=== PATIENT | female | born 1995 ===

== ENCOUNTER 2017-10-03 10:48 | Emergency (ER) | payer OTHER ==
[2017-10-03] MEDS ORDERED: Acetaminophen TAB* 325 MG PO ONE (11:39)
[2017-10-03 12:15] LABS: Hematocrit 40 % (35-47); Hemoglobin 13.1 g/dl (12.0-16.0); Mean Corpuscular HGB Conc 33 g/dl (31-36); Mean Corpuscular Hemoglobin 31 pg (27-31); Mean Corpuscular Volume 93 fL (80-97); Mean Platelet Volume 8 um3 (7.4-10.4); Red Blood Count 4.29 10^6/ul (4.0-5.4); Red Cell Distribution Width 13 % (10.5-15); White Blood Count 14.6 10^3/ul (3.5-10.8)
[2017-10-03 12:37] LABS: Albumin 4.4 g/dL (3.2-5.2); BUN/Creatinine Ratio 13.3 (8-20); C Reactive Protein 2.87 mg/L (< 5.00); Calcium 9.7 mg/dL (8.6-10.3); EGFR African American 110.6 (>60); Globulin 2.8 g/dL (2-4); Magnesium 1.9 mg/dL (1.9-2.7); Potassium 3.9 mmol/L (3.5-5.0); Total Bilirubin 0.7 mg/dL (0.2-1.0); Total Protein 7.2 g/dL (6.4-8.9)
[2017-10-03 12:51] LABS: TSH (Thyroid Stimulating Horm) 1.14 mcIU/mL (0.34-5.60)
[2017-10-03 13:47] LABS: Urine Bacteria Absent (Absent); Urine Bilirubin Negative (Negative); Urine Glucose Negative (Negative); Urine Nitrite Negative (Negative)
--- NOTE | 2017-10-03 14:05 | ED ---
Jesse Reed Nilda, scribed for Hung Lam MD on 10/03/17 at 1145 . Complex/Multi-Sys Presentation - HPI Summary HPI Summary: This patient is a 22 year old F presenting to [facility] with a chief complaint of general malaise since yesterday. The patient rates the pain 6/10 in severity. Symptoms aggravated and alleviated by nothing. Patient reports chills, body aches, mild left flank pain, fatigue, and headache. Patient denies cough, N/V/D , rhinorrhea, burning with urination, and sore throat. She states she is also worried she may have contracted Hep C from ex-boyfriend.Current medications include flagyl (treating Trichomonas) and anti-fungal medication (treating yeast infection). Pt states that this past month she had a pelvic exam at [facility] with unremarkable results except for trichomonas. NKDA. - History Of Current Complaint Chief Complaint: EDFluSymptoms Time Seen by Provider: 10/03/17 11:19 Hx Obtained From: Patient Onset/Duration: Sudden Onset, Lasting Days, Still Present Timing: Constant Severity Currently: Moderate Location: Pain At: - left flank, general body aches Aggravating Factor(s): nothing Alleviating Factor(s): nothing Associated Signs And Symptoms: Positive: Other - chills, body aches, mild left flank pain, fatigue, and headache. Patient denies cough, N/V/D, rhinorrhea, burning with urination, and sore throat. - Allergies/Home Medications Allergies/Adverse Reactions: Allergies Allergy/AdvReac Type Severity Reaction Status Date / Time No Known Allergies Allergy Verified 10/03/17 10:57 PMH/Surg Hx/FS Hx/Imm Hx History: Reports: Other Problems/Disorders - trichomonas, yeast infection Sensory History: Denies: Hx Legally Blind EENT History: Denies: Hx Deafness Infectious Disease History: No Infectious Disease History: Denies: Traveled Outside the [place] in Last 30 Days - Family History Known Family History: Negative: Cardiac Disease, Hypertension, Diabetes - Social History Occupation: Student Alcohol Use: None Hx Substance Use: No Substance Use Type: Reports: None Hx Tobacco Use: No Smoking Status (MU): Never Smoked Tobacco Review of Systems Positive: Chills, Fatigue Negative: Sore Throat, Nasal Discharge Negative: Cough Negative: Vomiting, Diarrhea, Nausea Positive: flank pain - left. Negative: burning Positive: Other - body aches Positive: Headache All Other Systems Reviewed And Are Negative: Yes Physical Exam Triage Information Reviewed: Yes Vital Signs On Initial Exam: Initial Vitals Temp Pulse Resp BP Pulse Ox 99.2 F 86 15 109/57 100 10/03/17 10:52 10/03/17 10:52 10/03/17 10:52 10/03/17 10:52 10/03/17 10:52 Vital Signs Reviewed: Yes Appearance: Positive: Well-Appearing, No Pain Distress Skin: Positive: Warm, Skin Color Reflects Adequate Perfusion Head/Face: Positive: Normal Head/Face Inspection ENT: Positive: Normal ENT inspection, Pharynx normal Neck: Positive: Supple, Nontender Respiratory/Lung Sounds: Positive: Clear to Auscultation, Breath Sounds Present Cardiovascular: Positive: RRR. Negative: Murmur Abdomen Description: Positive: Nontender. Negative: CVA Tenderness (R), CVA Tenderness (L) Musculoskeletal: Positive: Strength/ROM Intact Neurological: Positive: Sensory/Motor Intact, Alert, Oriented to Person Place, Time, CN Intact II-III Psychiatric: Positive: Normal - Jaquelin Coma Scale Best Eye Response: 4 - Spontaneous Best Motor Response: 6 - Obeys Commands Best Verbal Response: 5 - Oriented Diagnostics - Vital Signs Vital Signs Temp Pulse Resp BP Pulse Ox 10/03/17 10:52 99.2 F 86 15 109/57 100 - Laboratory Lab Results: Lab Results 10/03/17 Range/Units 12:00 Influenza A (Rapid) Negative (Negative) Influenza B (Rapid) Negative (Negative) Result Diagrams: 10/03/17 11:50 10/03/17 11:50 Lab Statement: Any lab studies that have been ordered have been reviewed, and results considered in the medical decision making process. - EKG 1158 Cardiac Rate: NL EKG Rhythm: Sinus Rhythm - 78 bpm EKG Interpretation: nl ME, nl QRS, nl QT, no STEMI Complex Multi-Symp Course/Dx Assessment/Plan: This patient is a 22 year old F presenting to [facility] with a chief complaint of general malaise since yesterday. The patient rates the pain 6 /10 in severity. Symptoms aggravated and alleviated by nothing. Patient reports chills, body aches, mild left flank pain, fatigue, and headache. Patient denies cough, N/V/D, rhinorrhea, burning with urination, and sore throat. She states she is also worried she may have contracted Hep C from ex-boyfriend. Current medications include flagyl (treating Trichomonas) and anti-fungal medication ( treating yeast infection). This past month patient had pelvic exam at [facility] with unremarkable results except for trichomonas. NKDA. Pt given Acetominophen in ED. Pending labs and EKG. [1158] An EKG reveals NSR 78 bpm, nl ME, nl QRS, nl QT, no STEMI. - Diagnoses Provider Diagnoses: Malaise and fatigue Discharge - Discharge Plan Condition: Good Disposition: HOME Patient Education Materials: Viral Syndrome (ED) Referrals: [facility] - Dieudonne JAIN [Primary Care Provider] - 2 Days The documentation as recorded by the Jesse davis Nilda accurately reflects the service I personally performed and the decisions made by me, Hung Lam MD.
[2017-10-03 14:08] VITALS: BP 101/64
== END 2017-10-03 14:09 | disposition home or self-care (01) ==
LOC: ED 10:48
DX: R53.81 Other malaise (principal); R53.83 Other fatigue; R51 Headache; R10.84 Generalized abdominal pain
CPT/HCPCS: 36415; 80053; 80074; 81003; 81015; 83605; 83735; 84443; 84702; 85025; 86140; 86703; 87086; 87502; 93005; 99282; A9270-GY